=== PATIENT | male | born 1990 | race Hispanic/Latino ===

== ENCOUNTER 2018-09-09 08:43 | Emergency (ER) | payer OTHER ==
[2018-09-09 09:35] LABS: RAPID GROUP A STREP NEGATIVE (NEGATIVE)
== END 2018-09-09 10:07 | disposition home or self-care (01) ==
LOC: EDH 08:43 → EEVIPCON 08:43 → EDH 10:07
DX: J06.9 Acute upper respiratory infection, unspecified (principal)
CPT/HCPCS: 87804; 87880